=== PATIENT | female | born 1990 ===

== ENCOUNTER 2020-08-08 20:47 | Emergency (ER) | payer MEDICAID ==
[2020-08-08] MEDS ORDERED: Sodium Chloride 0.9% 1,000 ML IV ONE ×3 (20:50→21:51)
[2020-08-08] MEDS ORDERED: Lidocaine 2% 100 MG/5 ML Syringe IVPUSH ONE (20:56)
[2020-08-08] MEDS ORDERED: Naloxone 0.4 MG/ML SDV IVPUSH STA (20:59)
--- NOTE | 2020-08-08 21:21 | EDM.PDOC ---
ED HPI GENERAL MEDICAL PROBLEM - General Chief Complaint: Neurological Problem Stated Complaint: RAPID HEART Time Seen by Provider: 08/08/20 20:47 Source of Information: Reports: Patient, EMS History Limitations: Reports: Altered Mental Status - History of Present Illness INITIAL COMMENTS - FREE TEXT/NARRATIVE: brought in by EMS . [place] and suddenly slipped and fell on floor ( states she was lightheaded) and passed out Seemed to jerk but no incontinence and not confirmed she had seizure in the ambulance she had about 9 episodes of Vtach: noted on monitor and strip Would spontaneously recover Woke up once and answered questions and then lost consciousness again But she was not breathing well : very slow , so EMS started bagging her : help with her breathing Was given Narcan in the ambulance on arrival she was given bolus IVF and Iv lidocaine then patient woke up denies drug use , Call from boyfriend indicates she uses a THC pen regularly and smokes had similar episode in January when she was having episodes of syncopy, Was in and out these episodes , then stopped spontaneously without a diagnosis - Related Data Allergies Allergy/AdvReac Type Severity Reaction Status Date / Time Unable to Assess Allergy Unverified 08/08/20 21:29 Home Meds: Home Meds . [Unable to Verify Home Med List] 08/08/20 [History] ED ROS GENERAL - Review of Systems Review Of Systems: Unable To Obtain Reason Not Obtained: altered mental status - Physical Exam Exam: See Below Exam Limited By: No Limitations General Appearance: Lethargic Eye Exam: Bilateral Eye: Abnormal Pupil (pinpoint pupil) Ears: Normal External Exam Nose: Normal Mucosa Throat/Mouth: Normal Oropharynx Head Exam: No: Scalp Lacerations, Scalp Swelling Neck: Supple, Non-Tender Respiratory/Chest: Lungs Clear, Normal Breath Sounds Cardiovascular: Regular Rate, Rhythm GI/Abdominal: Soft, Non-Tender Neuro Exam (Abbreviated): Alert, Oriented, CN II-XII Intact Extremities: Normal Range of Motion Psychiatric: Flat Affect Skin Exam: Warm, Dry Course - Orders/Labs/Meds Orders: Active Orders 24 hr Category Date Time Status EKG Documentation Completion [RC] ASDIRECTED Care 08/08/20 20:49 Active Chest 1V Frontal [CR] Stat Exams 08/08/20 20:48 Taken Head wo Cont [CT] Stat Exams 08/08/20 20:59 Taken CORONAVIRUS COVID-19, ERIN Stat Lab 08/08/20 20:58 Ordered EKG 12 Lead [EK] Routine Ther 08/08/20 20:49 Ordered Labs: Laboratory Tests 08/08/20 08/08/20 08/08/20 Range/Units 20:50 20:50 20:50 WBC 10.9 (4.5-12.0) X10-3/uL RBC 5.32 H (3.23-5.20) x10(6)uL Hgb 14.9 (11.5-15.5) g/dL Hct 45.4 (30.0-51.3) % MCV 85.3 (80-96) fL MCH 28.0 (27.7-33.6) pg MCHC 32.9 (32.2-35.4) g/dL RDW 12.4 (11.5-15.5) % Plt Count 308 (125-369) X10(3)uL MPV 8.1 (7.4-10.4) fL Neut % (Auto) 83.6 H (46-82) % Lymph % (Auto) 12.6 L (13-37) % Bibb % (Auto) 2.9 L (4-12) % Eos % (Auto) 0 L (1.0-5.0) % Baso % (Auto) 1 (0-2) % Neut # (Auto) 9.1 H (1.6-8.3) # Lymph # (Auto) 1.4 (0.6-5.0) # Bibb # (Auto) 0.3 (0.0-1.3) # Eos # (Auto) 0.0 (0.0-0.8) # Baso # (Auto) 0.1 (0.0-0.2) # Sodium 139 (135-145) mmol/L Potassium 4.1 (3.5-5.3) mmol/L Chloride 103 (100-110) mmol/L Carbon Dioxide 26 (21-32) mmol/L BUN 14 (7-18) mg/dL Creatinine 0.8 (0.55-1.02) mg/dL Est Cr Clr Drug Dosing TNP Estimated GFR (MDRD) > 60 (>60) BUN/Creatinine Ratio 17.5 (9-20) Glucose 97 (80-116) mg/dL Lactic Acid 1.4 (0.4-2.0) mmol/L Calcium 8.7 (8.6-10.2) mg/dL Total Bilirubin 0.6 (0.1-1.3) mg/dL AST 17 (5-25) IU/L ALT 17 (12-36) U/L Alkaline Phosphatase 60 (56-112) IU/L Troponin I (4.0-60.3) pg/mL Total Protein 7.1 (6.0-8.0) g/dL Albumin 3.8 (3.5-5.2) g/dL Globulin 3.3 g/dL Albumin/Globulin Ratio 1.2 Urine Opiates Screen (NEGATIVE) Ur Oxycodone Screen (NEGATIVE) Ur Propoxyphene Screen (NEGATIVE) Ur Barbituates Screen (NEGATIVE) Ur Tricyclics Screen (NEGATIVE) Ur Phencyclidine Scrn (NEGATIVE) Ur Amphetamine Screen (NEGATIVE) Urine MDMA Screen (NEGATIVE) U Benzodiazepines Scrn (NEGATIVE) U Cocaine Metab Screen (NEGATIVE) U Marijuana (THC) Screen (NEGATIVE) Ethyl Alcohol (<0.03) % 08/08/20 08/08/20 08/08/20 Range/Units 20:50 20:50 21:35 WBC (4.5-12.0) X10-3/uL RBC (3.23-5.20) x10(6)uL Hgb (11.5-15.5) g/dL Hct (30.0-51.3) % MCV (80-96) fL MCH (27.7-33.6) pg MCHC (32.2-35.4) g/dL RDW (11.5-15.5) % Plt Count (125-369) X10(3)uL MPV (7.4-10.4) fL Neut % (Auto) (46-82) % Lymph % (Auto) (13-37) % Bibb % (Auto) (4-12) % Eos % (Auto) (1.0-5.0) % Baso % (Auto) (0-2) % Neut # (Auto) (1.6-8.3) # Lymph # (Auto) (0.6-5.0) # Bibb # (Auto) (0.0-1.3) # Eos # (Auto) (0.0-0.8) # Baso # (Auto) (0.0-0.2) # Sodium (135-145) mmol/L Potassium (3.5-5.3) mmol/L Chloride (100-110) mmol/L Carbon Dioxide (21-32) mmol/L BUN (7-18) mg/dL Creatinine (0.55-1.02) mg/dL Est Cr Clr Drug Dosing Estimated GFR (MDRD) (>60) BUN/Creatinine Ratio (9-20) Glucose (80-116) mg/dL Lactic Acid (0.4-2.0) mmol/L Calcium (8.6-10.2) mg/dL Total Bilirubin (0.1-1.3) mg/dL AST (5-25) IU/L ALT (12-36) U/L Alkaline Phosphatase (56-112) IU/L Troponin I < 4.0 L (4.0-60.3) pg/mL Total Protein (6.0-8.0) g/dL Albumin (3.5-5.2) g/dL Globulin g/dL Albumin/Globulin Ratio Urine Opiates Screen Negative (NEGATIVE) Ur Oxycodone Screen Negative (NEGATIVE) Ur Propoxyphene Screen Negative (NEGATIVE) Ur Barbituates Screen Negative (NEGATIVE) Ur Tricyclics Screen Negative (NEGATIVE) Ur Phencyclidine Scrn Negative (NEGATIVE) Ur Amphetamine Screen Negative (NEGATIVE) Urine MDMA Screen Negative (NEGATIVE) U Benzodiazepines Scrn Negative (NEGATIVE) U Cocaine Metab Screen Negative (NEGATIVE) U Marijuana (THC) Screen Positive H (NEGATIVE) Ethyl Alcohol < 0.03 (<0.03) % Departure - Departure Time of Disposition: 10:05 Disposition: DC/Tfer to Acute Hospital 02 Condition: Critical Clinical Impression: Altered mental status, Ventricular tachycardia (paroxysmal), Tetrahydrocannabinol (THC) dependence - Discharge Information *PRESCRIPTION DRUG MONITORING PROGRAM REVIEWED*: Not Applicable *COPY OF PRESCRIPTION DRUG MONITORING REPORT IN PATIENT LEATHA: Not Applicable Referrals: PCP,None [Primary Care Provider] - Forms: ED Department Discharge - My Orders Last 24 Hours: My Active Orders 08/08/20 20:48 Chest 1V Frontal [CR] Stat 08/08/20 20:49 EKG Documentation Completion [RC] ASDIRECTED EKG 12 Lead [EK] Routine 10/02/20 20:58 CORONAVIRUS COVID-19, ERIN Stat 08/08/20 20:59 Head wo Cont [CT] Stat - Assessment/Plan Last 24 Hours: My Active Orders 08/08/20 20:48 Chest 1V Frontal [CR] Stat 08/08/20 20:49 EKG Documentation Completion [RC] ASDIRECTED EKG 12 Lead [EK] Routine 08/08/20 20:58 CORONAVIRUS COVID-19, ERIN Stat 08/08/20 20:59 Head wo Cont [CT] Stat
== END 2020-08-08 22:02 ==
LOC: FB.ED 20:47
DX: R41.82 Altered mental status, unspecified (principal); I47.2 Ventricular tachycardia; F12.20 Cannabis dependence, uncomplicated
CPT/HCPCS: 36415; 70450; 71045; 80053; 80305; 80307; 83605; 84484; 85025; 93005; 96361; 96374; 96375; 99285; J2001; J2310; J7030